=== PATIENT | male | born 1955 | race Caucasian/White ===

== ENCOUNTER 2018-09-20 10:42 | Emergency (ER) | payer BC, SELFPAY ==
[2018-09-20] MEDS ORDERED: LIDOCAINE 1% 20 ML MDV ONE ×2 (11:16→12:33)
[2018-09-20] MEDS ORDERED: LIDOCAINE 1% W/EPI 1:100,000 MDV 50 ML VIAL ONE (12:34)
--- NOTE | 2018-09-20 12:53 | EDPHYS ---
Physician Documentation [facility] Name: Felicia Galloway Age: 63 yrs Sex: Male : 1955 Arrival Date: 09/20/2018 Time: 10:46 Bed 24 Private MD: None, None ED Physician Virgil Harris HPI: 09/20 12:39 This 63 yrs old Male presents to ER via Ambulatory with complaints of Abscess.hussein 12:39 The patient presents with cellulitis of the right trapezius, the patient presents with hussein a swollen area of the right trapezius. Description: The affected area is moderate sized, localized. Onset: The symptoms/episode began/occurred 1 week(s) ago. Possible cause(s): unknown. Associated signs and symptoms: The patient has no apparent associated signs or symptoms. Modifying factors: the symptoms are alleviated by remaining still, the symptoms are aggravated by pressure, squeezing the lesion and expressing the contents. Severity of symptoms: At their worst the symptoms were mild. The patient has not experienced similar symptoms in the past. Historical: - Allergies: 10:52 No Known Allergies; sv - PMHx: 10:52 None; sv - PSHx: 10:52 None; sv - Immunization history:: Adult Immunizations up to date. - Social history:: Smoking status: Patient/guardian denies using tobacco. - Family history:: not pertinent. - Ebola Screening: : Patient negative for fever greater than or equal to 101.5 degrees Fahrenheit, and additional compatible Ebola Virus Disease symptoms Patient denies exposure to infectious person Patient denies travel to an Ebola-affected area in the 21 days before illness onset No symptoms or risks identified at this time. ROS: 12:39 Constitutional: Negative for fever, chills, and weight loss, Eyes: Negative for injury, hussein pain, redness, and discharge, ENT: Negative for injury, pain, and discharge, Neck: Negative for injury, pain, and swelling, Cardiovascular: Negative for chest pain, palpitations, and edema, Respiratory: Negative for shortness of breath, cough, wheezing, and pleuritic chest pain, Abdomen/GI: Negative for abdominal pain, nausea, vomiting, diarrhea, and constipation, Back: Negative for injury and pain, : Negative for injury, bleeding, discharge, and swelling, MS/Extremity: Negative for injury and deformity, Neuro: Negative for headache, weakness, numbness, tingling, and seizure, Psych: Negative for depression, anxiety, suicide ideation, homicidal ideation, and hallucinations, Allergy/Immunology: Negative for hives, rash, and allergies, Endocrine: Negative for neck swelling, polydipsia, polyuria, polyphagia, and marked weight changes, Hematologic/Lymphatic: Negative for swollen nodes, abnormal bleeding, and unusual bruising. 12:39 Skin: Positive for abscess, erythema, swelling, of the right trapezius. Exam: 12:39 Constitutional: This is a well developed, well nourished patient who is awake, alert, hussein and in no acute distress. Head/Face: Normocephalic, atraumatic. Eyes: Pupils equal round and reactive to light, extra-ocular motions intact. Lids and lashes normal. Conjunctiva and sclera are non-icteric and not injected. Cornea within normal limits. Periorbital areas with no swelling, redness, or edema. ENT: Nares patent. No nasal discharge, no septal abnormalities noted. Tympanic membranes are normal and external auditory canals are clear. Oropharynx with no redness, swelling, or masses, exudates, or evidence of obstruction, uvula midline. Mucous membranes moist. Neck: Trachea midline, no thyromegaly or masses palpated, and no cervical lymphadenopathy. Supple, full range of motion without nuchal rigidity, or vertebral point tenderness. No Meningismus. Chest/axilla: Normal chest wall appearance and motion. Nontender with no deformity. No lesions are appreciated. Cardiovascular: Regular rate and rhythm with a normal S1 and S2. No gallops, murmurs, or rubs. Normal PMI, no JVD. No pulse deficits. Respiratory: Lungs have equal breath sounds bilaterally, clear to auscultation and percussion. No rales, rhonchi or wheezes noted. No increased work of breathing, no retractions or nasal flaring. Abdomen/GI: Soft, non-tender, with normal bowel sounds. No distension or tympany. No guarding or rebound. No evidence of tenderness throughout. Back: No spinal tenderness. No costovertebral tenderness. Full range of motion. Male : Normal genitalia with no discharge or lesions. MS/ Extremity: Pulses equal, no cyanosis. Neurovascular intact. Full, normal range of motion. Neuro: Awake and alert, GCS 15, oriented to person, place, time, and situation. Cranial nerves II-XII grossly intact. Motor strength 5/5 in all extremities. Sensory grossly intact. Cerebellar exam normal. Normal gait. Psych: Awake, alert, with orientation to person, place and time. Behavior, mood, and affect are within normal limits. 12:39 Skin: abscess, that is moderate sized, of the right trapezius, cellulitis, that is moderate, induration, that is moderate is noted, Other draining wound. Vital Signs: 10:52 BP 142 / 85; Pulse 73; Resp 18; Temp 98.4; Pulse Ox 97% ; Weight 86.18 kg; Height 6 ft. sv 0 in. (182.88 cm); Pain 6/10; 13:35 BP 140 / 85; Pulse 76; Resp 17; Pulse Ox 99% on R/A; aj 10:52 Body Mass Index 25.77 (86.18 kg, 182.88 cm) sv Procedures: 12:43 I \T\ D: Incision and drainage was performed for an abscess of the right right trapezius hussein Prepped with Betadine, Anesthetized with 10 ml's 1% Lidocaine w/ Epi. Incised with #11 blade. Drained large amount purulent fluid. Packed with iodoform gauze, Dressing: sterile 4x4 gauze, the patient tolerated the procedure well. MDM: 10:56 Patient medically screened. [facility] 12:39 Data reviewed: vital signs, nurses notes. [facility] 09/20 12:38 Order name: Wound Culture [facility] 09/20 11:14 Order name: I\T\D Setup; Complete Time: 11:14 09/20 12:38 Order name: Wound dressing; Complete Time: 13:22 [facility] 09/20 12:38 Order name: Gloves, Sterile; Complete Time: 12:49 [facility] 09/20 12:38 Order name: Setup Suture Tray; Complete Time: 12:49 [facility] Administered Medications: 12:58 Drug: Doxycycline 100 mg Route: PO; aj 13:37 Follow up: Response: No adverse reaction aj 12:58 Drug: Bactrim (160 mg-800 mg (DS) 1 tablet Route: PO; aj 12:58 Follow up: Response: No adverse reaction aj 13:37 Follow up: Response: No adverse reaction aj 13:00 Drug: Lidocaine-Epinephrine -1%: (1:100,000) 10 ml Volume: 20 ml; Route: Infiltration; aj 13:37 Follow up: Response: No adverse reaction aj Disposition: 09/20/18 12:52 Discharged to Home. Impression: Cutaneous abscess of other sites - right trapezus. - Condition is Stable. - Discharge Instructions: Skin Abscess, Skin Abscess, [id number]. - Prescriptions for Tylenol- Codeine #3 300-30 mg Oral Tablet - take 2 tablet by ORAL route every 6 hours As needed; 30 tablet. Doxycycline Hyclate 100 mg Oral Tablet - take 1 tablet by ORAL route every 12 hours; 20 tablet. Bactrim DS 800- 160 mg Oral Tablet - take 1 tablet by ORAL route every 12 hours for 10 days; 20 tablet. - Medication Reconciliation Form, Thank You Letter, Antibiotic Education, Prescription Opioid Use form. - Follow up: Private Physician; When: 2 - 3 days; Reason: Recheck today's complaints, Continuance of care, Re-evaluation by your physician. Follow up: Kemar Ritchie; When: 2 - 3 days; Reason: Recheck today's complaints, Re-evaluation by your physician. - Problem is new. - Symptoms have improved. Signatures: Dispatcher [employer] Danica Mendes RN RN sv Myers, Amanda, RN RN aj Anderson, Corey, MD MD cha Corrections: (The following items were deleted from the chart) 13:37 12:52 09/20/2018 12:52 Discharged to Home. Impression: Cutaneous abscess of other sites aj - right trapezus. Condition is Stable. Discharge Instructions: Skin Abscess, Skin Abscess, [id number]. Prescriptions for Tylenol-Codeine #3 300-30 mg Oral Tablet - take 2 tablet by ORAL route every 6 hours As needed; 30 tablet, Doxycycline Hyclate 100 mg Oral Tablet - take 1 tablet by ORAL route every 12 hours; 20 tablet, Bactrim DS 800-160 mg Oral Tablet - take 1 tablet by ORAL route every 12 hours for 10 days; 20 tablet. and Forms are Medication Reconciliation Form, Thank You Letter, Antibiotic Education, Prescription Opioid Use. Follow up: Private Physician; When: 2 - 3 days; Reason: Recheck today's complaints, Continuance of care, Re-evaluation by your physician. Follow up: Kemar Ritchie; When: 2 - 3 days; Reason: Recheck today's complaints, Re-evaluation by your physician. Problem is new. Symptoms have improved. hussein
--- NOTE | 2018-09-20 12:53 | ER ---
Nurse's Notes [facility] Name: Felicia Galloway Age: 63 yrs Sex: Male : 1955 Arrival Date: 09/20/2018 Time: 10:46 Bed 24 Private MD: None, None Diagnosis: Cutaneous abscess of other sites-right trapezus Presentation: 09/20 10:51 Presenting complaint: Patient states: right shoulder abscess that has been there a sv couple of months but recently it got tight and opened up on its own and started having drainage. Transition of care: patient was not received from another setting of care. Onset of symptoms is unknown. Care prior to arrival: None. 10:51 Method Of Arrival: Ambulatory sv 10:51 Acuity: EMMIE 4 sv 13:36 Risk Assessment: Do you want to hurt yourself or someone else? Patient reports no aj desire to harm self or others. Initial Sepsis Screen: Does the patient meet any 2 criteria? No. Patient's initial sepsis screen is negative. Does the patient have a suspected source of infection? No. Patient's initial sepsis screen is negative. Triage Assessment: 10:53 General: Appears in no apparent distress. uncomfortable, Behavior is calm, cooperative, sv appropriate for age. Pain: Complains of pain in right trapezius Pain currently is 6 out of 10 on a pain scale. Neuro: Level of Consciousness is awake, alert, obeys commands, Oriented to person, place, time, situation, Gait is steady. Respiratory: Respiratory effort is even, unlabored, Respiratory pattern is regular, symmetrical. Historical: - Allergies: 10:52 No Known Allergies; sv - PMHx: 10:52 None; sv - PSHx: 10:52 None; sv - Immunization history:: Adult Immunizations up to date. - Social history:: Smoking status: Patient/guardian denies using tobacco. - Family history:: not pertinent. - Ebola Screening: : Patient negative for fever greater than or equal to 101.5 degrees Fahrenheit, and additional compatible Ebola Virus Disease symptoms Patient denies exposure to infectious person Patient denies travel to an Ebola-affected area in the 21 days before illness onset No symptoms or risks identified at this time. Screenin:12 Abuse screen: Denies threats or abuse. Denies injuries from another. Nutritional aj screening: No deficits noted. Tuberculosis screening: No symptoms or risk factors identified. Fall Risk None identified. Assessment: 11:12 General: Appears in no apparent distress. comfortable, Behavior is calm, cooperative, aj appropriate for age. Pain: Complains of pain in right trapezius. Neuro: Level of Consciousness is awake, alert, obeys commands, Oriented to person, place, time, situation, Appropriate for age. Respiratory: Airway is patent Respiratory effort is even, unlabored, Respiratory pattern is regular, symmetrical. Derm: Skin is intact, is healthy with good turgor, Skin is pink, warm \T\ dry. 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 12:59 Reassessment: Patient discharge pending provider procedure. Supplies set up at bedside aj and available for provider. 13:35 Reassessment: Patient appears in no apparent distress at this time. No changes from aj previously documented assessment. Patient and/or family updated on plan of care and expected duration. Pain level reassessed. Patient is alert, oriented x 3, equal unlabored respirations, skin warm/dry/pink. Patient states feeling better. Patient states symptoms have improved. Vital Signs: 10:52 BP 142 / 85; Pulse 73; Resp 18; Temp 98.4; Pulse Ox 97% ; Weight 86.18 kg; Height 6 ft. sv 0 in. (182.88 cm); Pain 6/10; 13:35 BP 140 / 85; Pulse 76; Resp 17; Pulse Ox 99% on R/A; aj 10:52 Body Mass Index 25.77 (86.18 kg, 182.88 cm) sv ED Course: 10:46 Patient arrived in ED. mr 10:46 None, None is Private Physician. mr 10:52 Triage completed. sv 10:53 Emily Frank, RN is Primary Nurse. aj 10:53 Arm band placed on. sv 10:56 Virgil Harris MD is Attending Physician. hussein 11:12 Patient has correct armband on for positive identification. aj 12:52 Kemar Ritchie MD is Referral Physician. hussein 13:16 Wound Culture Sent. aj 13:17 Assist provider with I \T\ D: of an abscess on right trapezius. Patient did not have IV aj access during this emergency room visit. Administered Medications: 12:58 Drug: Doxycycline 100 mg Route: PO; aj 13:37 Follow up: Response: No adverse reaction aj 12:58 Drug: Bactrim (160 mg-800 mg (DS) 1 tablet Route: PO; aj 12:58 Follow up: Response: No adverse reaction aj 13:37 Follow up: Response: No adverse reaction aj 13:00 Drug: Lidocaine-Epinephrine -1%: (1:100,000) 10 ml Volume: 20 ml; Route: Infiltration; aj 13:37 Follow up: Response: No adverse reaction aj Outcome: 12:52 Discharge ordered by . hussein 13:35 Discharged to home ambulatory. aj 13:35 Condition: good 13:35 Discharge instructions given to patient, Instructed on discharge instructions, follow up and referral plans. medication usage, Demonstrated understanding of instructions, follow-up care, medications, Prescriptions given X 3. 13:37 Patient left the ED. aj Signatures: Danica Zimmerman RN RN sv Myers, Amanda, RN RN aj Anderson, Corey, MD MD cha Rivera, Mary mr
[2018-09-20] MEDS ORDERED: SMZ./TMP. 800/160 MG TABLET ONE (13:07)
[2018-09-20] MEDS ORDERED: DOXYCYCLINE 100 MG CAP PO ONE (13:08)
== END 2018-09-20 13:37 | disposition home or self-care (01) ==
LOC: ER 10:42
PROC: 0H9BXZZ Drainage of Right Upper Arm Skin, External Approach (ICD-10-PCS; principal; 2018-09-20)
DX: L02.413 Cutaneous abscess of right upper limb (principal)
CPT/HCPCS: 87070; 87205; 99284

== ENCOUNTER 2021-01-12 20:06 | Emergency (ER) | payer SELFPAY ==
--- OUTSIDE RECORDS SUMMARY | 2021-01-12 20:09 | XMS REPORT | Continuity of Care Document ---
:1955 Author Organization [facility] t Address [address] [place] [address] Care Team Providers Name Role Phone Srinivasa MORAN, K.H. Attending Clinician Franky Bhakta MA Attending Clinician Unavailable Tani Bartholomew DO Attending Clinician Doctor Unassigned, Name Attending Clinician Unavailable Elisabet MORAN Attending Clinician Jaren MORAN Attending Clinician Problems Condition Condition Condition Status Onset Resolution Last Treating Co mments Source Name Details Category Date Date Treatment Clinician Date Sebaceous Sebaceous Diagnosis Active C [facility] cyst cyst kes [facility] ent Clinics Allergies, Adverse Reactions, Alerts This patient has no known allergies or adverse reactions. Medications Ordered Filled Start Stop Current Ordering Indication Dosage Frequency Signature Comments Components Source Medication Medication Date Date Medication? Clinician (SIG) Name Name Sulfamethox Sulfamethox Yes Kemar [address] [facility] [address] azole-Trime azole-Trime Kov[facility]v [facility] - thoprim thoprim [facility] Clinics Multi For Multi For Yes Kemar as [facility] Him Him Kovacev directed kes - [facility] ent Clinics Procedures This patient has no known procedures. Encounters Start End Encounter Admission Attending Care Care Encounter Source Date/Time Date/Time Type Type Clinicians Facility Department ID 2020-12-31 2020-12-31 Refill DEREK Bernabe [id number] 00:00:00 00:00:00 Angela Alvarado [id number] [place] [id number] Professio [phone] nal 059 [facility] 2020-11-29 2020-11-29 Case Jonah Bhakta [id number] 00:00:00 00:00:00 Management Stephen Nice [id number] [place] [id number] 2020-10-30 2020-10-30 Patient [facility] [id number] 00:00:00 00:00:00 Outreach [facility] [id number] [facility] [id number] PAVHARI [id number] [facility] 2020-10-23 2020-10-23 [facility] [id number] 00:00:00 00:00:00 Angela Alvarado [id number] [place] [id number] Professio [phone] [facility]9 [facility] 2020-10-22 2020-10-22 Orders Doctor JORGE [id number] 00:00:00 00:00:00 Only Unassigned, WILLEM [id number] [facility] [id number] 2020-10-02 2020-10-02 Orders Doctor JORGE [id number] 00:00:00 00:00:00 Only Unassigned, WILLEM [id number] [facility] [id number] 2020-09-20 2020-09-20 Telephone [facility] [id number] 00:00:00 00:00:00 Angela Alvarado [id number] [place] [id number] Professio [phone] psychiatric hospital9 [facility] 2020-09-17 2020-09-17 [facility] Dahiana Bhandari [id number] 08:00:00 23:59:00 Encounter Alejandro Barillas [id number] [facility] [id number] 2020-09-17 2020-09-17 [facility] Dahiana Bhandari [id number] 07:45:00 07:59:00 Encounter Alejandro Barillas [id number] [facility] [id number] 2020-09-17 2020-09-17 Telephone [facility] [id number] 00:00:00 00:00:00 [place] [id number] [place] [id number] [place] [id number] [place] [address] Office [facility] 2020-09-10 2020-09-10 Telephone Dahiana Bernabe [id number] 00:00:00 00:00:00 Angela Barillas [id number] [facility] [id number] 2020-08-28 2020-08-28 [facility] [id number] 00:00:00 00:00:00 Angela Alvarado [id number] [place] [id number] Professio [phone] psychiatric hospital9 [facility] 2020-05-11 2020-05-11 Office Srinivasa [facility] [id number] 09:58:09 20:55:08 Visit Angela Alvarado [id number] [place] [id number] Professio [id number] psychiatric hospital9 [facility] 2018-09-23 2018-09-23 [facility] [id number] [facility] 15:00:00 15:00:00 t Specialty/U Flavia kes - Specialty rology [facility] l Clinic Outpati ent Clinics Results This patient has no known results.
[2021-01-12] MEDS ORDERED: KETOROLAC 30 MG/ML INJ ONE (20:52)
[2021-01-12] MEDS ORDERED: NA CHLORIDE 0.9% 500 ML ONE (20:52)
[2021-01-12 21:03] LABS: Absolute Lymphocytes (CBC) 1.8 K/uL (0.7-4.9); Basophils % 0.6 % (0-1.3); Lymphocytes % 22.2 % (15.3-44.8); MPV 7.1 fL (7.6-11.3); RBC Red Blood Cell Count 4.14 M/uL (4.33-5.43)
[2021-01-12 21:12] LABS: Protime INR 1.05
--- NOTE | 2021-01-12 21:12 | RAD REPORT ---
EXAM DESCRIPTION: RAD - Chest Single View - 01/12/2021 9:02 pm CLINICAL HISTORY: CHEST PAIN Chest pain. COMPARISON: No comparisons FINDINGS: Portable technique limits examination quality. The lungs are grossly clear. The heart is normal in size. No displaced fractures. IMPRESSION: No acute intrathoracic process suspected.
[2021-01-12 21:23] LABS: Albumin 3.3 g/dL (3.4-5.0); Bilirubin Direct 0.1 mg/dL (0-0.2); Bilirubin Total 0.4 mg/dL (0.2-1.0); C-Reactive Protein 7.55 mg/L (<3.00); Magnesium 2.4 mg/dL (1.8-2.4); Potassium 4.1 mmol/L (3.5-5.1); Protein, Total 7.1 g/dL (6.4-8.2); Troponin (Emerg Dept Use Only) 0.02 ng/mL (0.0-0.045)
[2021-01-12] MEDS ORDERED: METHYLPREDNISOLONE 125 MG INJ ONE (22:10)
[2021-01-12 23:09] LABS: SARS-COV-2 RT PCR POSITIVE (NEGATIVE)
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
[2021-01-13] MEDS ORDERED: ASPIRIN 81 MG CHEWABLE TABLET ONE (00:45)
[2021-01-13 00:46] VITALS: TEMP 98.3
[2021-01-13 00:53] VITALS: BP 139/80; O2SAT 97
--- NOTE | 2021-01-13 20:33 | RAD REPORT ---
EXAM DESCRIPTION: CT - Abdomen Pelvis W Contrast - 01/13/2021 6:12 am CLINICAL HISTORY: Right side rib pain. COMPARISON: None. TECHNIQUE: CT of the abdomen and pelvis was performed following intravenous administration of iodina fitz contrast. Arterial phase images through the abdomen, and portal venous phase images through the a bdomen and pelvis were obtained. Oral contrast was not administered. Axial, coronal, and sagittal sof t tissue window reconstructions were created and sent to PACS. This exam was performed according to our departmental dose-optimization program, which includes autom ated exposure control, adjustment of the mA and/or kV according to patient size and/or use of iterati ve reconstruction technique. FINDINGS: Thoracic: No significant abnormality. Hepatobiliary: Tiny left hepatic lobe hypodensities, possibly cysts. No concerning hepatic lesion jaden ntified. The hepatic and portal veins are patent. The gallbladder is unremarkable. No biliary ductal dilatation. Pancreas: Unremarkable. Spleen: Unremarkable. Gastrointestinal: No evidence of bowel obstruction or perienteric inflammation. The appendix is nabil l. Small amount of fecal material in the colon. Adrenals: No abnormality identified in either adrenal gland. Renal: No concerning parenchymal abnormality in either kidney. No hydronephrosis or urolithiasis. Bladder/Reproductive: Unremarkable appearance of the urinary bladder by CT technique. Mild prostatome jackie with central dystrophic calcifications. Vascular/Lymphatics: No lymphadenopathy identified by CT size criteria. Mild mixed atherosclerosis. T he major visceral vessels are patent. Abdominal aorta is normal in caliber. Musculoskeletal: No acute osseous abnormality or concerning osseous lesion identified. Tiny bilateral fat-containing inguinal hernias with no associated inflammatory changes. L5-S1 and endplate degenera tive changes. Fluid / peritoneum: No significant free fluid. No free intraperitoneal air identified. IMPRESSION: 1. No acute abdominal or pelvic pathology identified. 2. Tiny bilateral fat-containing inguinal hernias with no associated inflammatory changes. 3. Mild prostatomegaly. Electronically signed by: Kiera Aguila MD 01/12/2021 11:30 PM CDT Due to temporary technical issues with the PACS/Fluency reporting system, reports are being signed by the in house radiologists without review as a courtesy to insure prompt reporting. The interpreting radiologist is fully responsible for the content of the report.
--- NOTE | 2021-01-13 20:36 | RAD REPORT ---
EXAM DESCRIPTION: CT - Chest For Pe Angio - 01/13/2021 6:12 am CLINICAL HISTORY: Right side rib pain. COMPARISON: None. TECHNIQUE: CTA of the chest was performed following intravenous administration of iodinated contrast . Axial soft tissue and bone window, and coronal and sagittal soft tissue window reconstructions were created and sent to PACS. 3D postprocessing was performed on an independent workstation, with images sent to PACS for subsequen t review. This exam was performed according to our departmental dose-optimization program, which includes autom ated exposure control, adjustment of the mA and/or kV according to patient size and/or use of iterati ve reconstruction technique. FINDINGS: Vascular: The pulmonary arteries are well-opacified to the segmental level. No CT evidence of acute pulmonary thromboembolism. No evidence of aortic aneurysm or dissection. Trace calcific ath erosclerosis. Lungs and pleura: Mild centrilobular emphysema. There are two small groundglass opacities in the kulwant phery of the right upper lobe, and one in the lingula. No pleural effusion. No pneumothorax. Mediastinum and neck: No mediastinal lymphadenopathy by CT size criteria. Unremarkable appearance of the thyroid gland. Cardiac: No cardiomegaly or pericardial effusion. Abdomen: No significant upper abdominal abnormality identified. Musculoskeletal: No concerning osseous abnormality. No acute osseous abnormality identified. IMPRESSION: 1. No CTA evidence of acute pulmonary thromboembolism. 2. No acute osseous abnormality identified. 3. Small groundglass opacities in the right upper lobe and lingula. Correlate for infectious/inflam matory process Electronically signed by: Kiera Aguila MD 01/12/2021 11:28 PM CDT Due to temporary technical issues with the PACS/Fluency reporting system, reports are being signed by the in house radiologists without review as a courtesy to insure prompt reporting. The interpreting radiologist is fully responsible for the content of the report.
== END 2021-01-13 00:39 | disposition home or self-care (01) ==
LOC: ER 20:06
DX: U07.1 COVID-19 (principal); J12.82 Pneumonia due to coronavirus disease 2019; I10 Essential (primary) hypertension; E78.00 Pure hypercholesterolemia, unspecified
CPT/HCPCS: 0240U; 36415; 71045; 71275; 74177; 80048; 80076; 83735; 83880; 84484; 85025; 85379; 85610; 86140; 93005; 96361; 96374; 96375; 99284; J2930; J7040; Q9967

== ENCOUNTER 2023-03-11 08:48 | Emergency (ER) | payer OTHER, SELFPAY ==
--- OUTSIDE RECORDS SUMMARY | 2023-03-11 08:56 | XMS REPORT | Continuity of Care Document ---
:[address] [facility] t Address [address] [facility] [place] [address] Care Team Providers Name Role Phone Pcp, Patient Does Not Have A Primary Care Physician [phone] Ramon MORAN, Kesha K.H. Attending Clinician KESHA NAVARROHRossana Attending Clinician Unavailable Stephen Bhakta MA Attending Clinician Unavailable Hernando Bartholomew DO Attending Clinician Doctor Unassigned, [place] Attending Clinician Unavailable Alejandro Bhandari MD Attending Clinician Kenton Eastman MD Attending Clinician ALEJANDRO BHANDARI Attending Clinician Unavailable ALEJANDRO BHANDARI Attending Clinician Unavailable Payers Payer Name Policy Type Policy Number Effective Date Expiration Date S ource Problems Condition Condition Condition Status Onset Resolution Last Treating Co mments Source Name Details Category Date Date Treatment Clinician Date Essential Essential Disease Active 2020-0 Uni vers hypertensi hypertensi 7-19 it y of on on 00:00: [place] [facility] Dyslipidem Dyslipidem Disease Active 2020-0 U nivers ia ia 7-19 ity of 00:00: [place] [facility] Exertional Exertional Disease Active 2020-0 U nivers chest pain chest pain 7-18 it y of 00:00: [place] [facility] Chest Chest Disease Active 2020-0 Univers pain, pain, 7-18 ity of cardiac cardiac 00:00: [place] [facility] Smoking Smoking Disease Active 2020-0 Univers greater greater 7-18 ity of than 10 than 10 00:00: [place] pack years pack years 00 Me dical Branch Sebaceous Sebaceous Diagnosis Active C ommon cyst cyst [facility] Allergies, Adverse Reactions, Alerts Allergy Allergy Status Severity Reaction(s) Onset Inactive Treating Comm ents Source Name Type Date Date Clinician NO KNOWN Drug Active Univers ALLERGIE Class ity of [facility] Social History Social Habit Start Date Stop Date Quantity Comments Source Tobacco use and 2020-03-10 2020-03-10 Never used [facility] exposure 00:00:00 00:00:00 Medical Branch Sex Ass[birth year] [facility] 00:00:00 00:00:00 Medical Branch Smoking Status Start Date Stop Date Source Former smoker 2020-03-10 00:00:00 2020-03-10 00:00:00 [facility] Branch Medications Ordered Filled Start Stop Current Ordering Indication Dosage Frequency Signature Comments Components Source Medication Medication Date Date Medication? Clinician (SIG) Name Name metoprolol Yes [id number] 25mg Take 1 U nivers succinate 9-10 tablet by ity o f XL 25 mg 24 00:00: mouth [place] hr tablet 00 daily. Medical Branch metoprolol Yes [id number] 25mg Take 1 U nivers succinate 9-10 tablet by ity o f XL 25 mg 24 00:00: mouth [place] hr tablet 00 daily. Medical Branch nitroglycer Yes .4mg Place 1 Uni vers in 0.4 mg 5-10 tablet ity of sublingual 00:00: [place] tablet 00 tongue Medical every 5 Branch (five) minutes as needed for Chest pain. atorvastati Yes 40mg Take 1 Univ ers n 40 mg 5-10 tablet by ity of tablet 00:00: mouth at [place] 00 bedtime. Medical Branch nitroglycer Yes .4mg Place 1 Uni vers in 0.4 mg 5-10 tablet ity of sublingual 00:00: [place] tablet 00 tongue Medical every 5 Branch (five) minutes as needed for Chest pain. atorvastati Yes 40mg Take 1 Univ ers n 40 mg 5-10 tablet by ity of tablet 00:00: mouth at [place] 00 bedtime. Medical Branch metoprolol 2020- No [id number] 25mg Take 1 Univers succinate 5-10 -10 tablet by ity of XL 25 mg 24 00:00[place] :00 daily. [facility] aspirin 81 Yes [id number] 81mg Take 1 U nivers mg chewable 7-21 tablet by ity of tablet 00:00: mouth 00 daily. Medical Branch aspirin 81 Yes [id number] 81mg Take 1 U nivers mg chewable 7-21 tablet by ity of tablet 00:00: mouth [place] 00 daily. Medical Branch Sulfamethox Sulfamethox Yes Kemar 1 tablet Common azole-Trime azole-Trime Kovacev Spirit thoprim thoprim - [facility] Multi For Multi For Yes Kemar as Commo n Him Him Kovacev directed Spirit [facility] Procedures This patient has no known procedures. Encounters Start End Encounter Admission Attending Care Care Encounter Source Date/Time Date/Time Type Type Clinicians Facility Department ID 2021-06-21 Emergency [facility] [id number] [facility]-12[facility]09 2021-12-09 [facility] [id number] Univers 00:00:00 00:00:00 Sendil Liz ALVARADO [id number] it[id number] PROF[place] [phone] S[address] 2021-05-02 2021-05-02 Refill Ramon [facility] [id number] Univers 00:00:00 00:00:00 Sendmonica Alvarado [id number] it[id number] [phone] S[address] alphonse[address] 2021-04-02 2021-04-02 Outpatient R RAMON [facility] [id number] Univers 10:30:00 10:30:00 [facility] 2020-12-31 2020-12-31 Refill Ramon [facility] [id number] 00:00:00 00:00:00 Kesha Alvarado [id number] [place] [id number] Professio [id number] [address] 2020-11-29 2020-11-29 Case Jonah Bhakta [id number] 00:00:00 00:00:00 Management Mainorarielledandre [place] [id number] [place] [id number] 2020-10-30 2020-10-30 [facility] [id number] 00:00:00 00:00:00 Outreach Hernando CHANDLER [id number] [facility] [id number] PAVHARION [id number] 2020-10-23 2020-10-23 [facility]phone [facility] [id number] 00:00:00 00:00:00 Kesha Alvarado [id number] [place] [id number] Professio [id number] [address] 2020-10-22 2020-10-22 Orders Doctor JORGE [id number] 00:00:00 00:00:00 Only Unassigned, WILLEM [id number] [place] [facility] [id number] 2020-10-02 2020-10-02 [facility] [id number] Univers 10:00:00 10:00:00 SENDIL jazmyne [facility] 2020-10-02 2020-10-02 Orders Doctor JORGE [id number] 00:00:00 00:00:00 Only UnassignedWILLEM [id number] [place] [facility] [id number] [id number] 2020-09-20 2020-09-20 [facility] [id number] 00:00:00 00:00:00 Kesha Alvarado [id number] [place] [id number] Professio [phone] [facility] 059 Building 2020-09-17 2020-09-17 [facility] Dahiana Bhandari [id number] 08:00:00 23:59:00 Encounter Alejandro Barillas [id number]2.686 [id number] 2020-09-17 2020-09-17 [facility] Dahiana Bhandari [id number] 07:45:00 07:59:00 Encounter Alejandro Barillas [id number]2.686 [id number] 247 2020-09-17 2020-09-17 Outpatient R [facility] [id number] Univers 07:00:00 07:00:00 [facility] 2020-09-17 2020-09-17 [facility] [id number] 00:00:00 00:00:00 [facility] [id number] [place] [id number] [place] [phone] [place] [address] Office Building 2020-09-14 2020-09-14 [facility] [id number] Univers 07:45:00 07:45:00 [facility] 2020-09-10 2020-09-10 Telephone Dahiana Navarro [id number] 00:00:00 00:00:00 Kesha Barillas [id number]2.686 [id number] 2020-08-28 2020-08-28 Telephone Ramon [facility] [id number] 00:00:00 00:00:00 Kesha Alvarado [id number] [place] [id number] [facility] [phone] [facility]9 [facility] 2020-07-02 2020-07-02 Outpatient R RAMON [facility] [id number] Univers 11:30:00 11:30:[facility] 2020-05-11 2020-05-11 Office Ramon [facility] [id number] 09:58:09 20:55:08 Visit Kesha Alvarado [id number] [place] [id number] [facility] [phone] [facility] 059 [facility] 2020-05-11 2020-05-11 Outpatient R RAMON [facility] [id number] Univers 10:00:00 10:00:[facility] 2018-09-23 2018-09-23 [id number] Common 15:00:00 15:00:00 t Specialty/U Sp miguel angel Special[facility] rology - [facility] Results This patient has no known results.
--- NOTE | 2023-03-11 09:15 | RAD REPORT ---
EXAM DESCRIPTION: CT - Head Brain Wo Cont - 03/11/2023 9:06 am CLINICAL HISTORY: SEIZURE Headache, drowsiness, seizure COMPARISON: No comparisons TECHNIQUE: All CT scans are performed using dose optimization technique as appropriate and may inclu de automated exposure control or mA/KV adjustment according to patient size. FINDINGS: No intracranial hemorrhage, hydrocephalus or extra-axial fluid collection.No areas of brai n edema or evidence of midline shift. The paranasal sinuses and mastoids are clear. Prominent polypoid soft tissue is seen in the nasal air way in nasopharynx. Direct visualization may be considered. The calvarium is intact. IMPRESSION: No acute intracranial abnormality.
--- NOTE | 2023-03-11 09:15 | RAD REPORT ---
EXAM DESCRIPTION: RAD - Chest Single View - 03/11/2023 9:10 am CLINICAL HISTORY: syncope Chest pain. COMPARISON: Chest Single View dated 01/12/2021 FINDINGS: Portable technique limits examination quality. The lungs are grossly clear. The heart is normal in size. No displaced fractures. IMPRESSION: No acute intrathoracic process suspected.
[2023-03-11 09:52] LABS: Absolute Lymphocytes (CBC) 0.8 K/uL (0.7-4.9); Hematocrit 40.9 % (39.6-49.0); Lymphocytes % 8.5 % (15.3-44.8); MCV 90.7 fL (80-100); MPV 7.5 fL (7.6-11.3); RBC Red Blood Cell Count 4.51 M/uL (4.33-5.43)
[2023-03-11 10:10] LABS: Albumin 3.3 g/dL (3.4-5.0); Bilirubin Direct 0.1 mg/dL (0-0.2); Bilirubin Indirect, Calculated 0.2 mg/dL (0.2-0.8); Bilirubin Total 0.3 mg/dL (0.2-1.0); Magnesium 2.7 mg/dL (1.6-2.4); Potassium 4.4 mEq/L (3.5-5.1); Protein, Total 6.4 g/dL (6.4-8.2); Troponin High Sensitivity 36.5 pg/mL (<58.9)
--- NOTE | 2023-03-11 11:03 | EDPHYS ---
Physician Documentation [facility] [place] Name: Felicia Galloway Age: 68 yrs Sex: Male : 1955 Arrival Date: 03/11/2023 Time: 08:48 Bed 19 Private MD: ED Physician Jonathan Jules HPI: 03/11 11:10 This 68 yrs old Male presents to ER via EMS with complaints of Probable Seizure. rt 11:10 Patient presents to the ED with reported seizure. Initially, patient stated that he had rt no prior seizure history, however, the family later stated that he had to seizures previously, last one about 1 month ago. Denies any head trauma. Patient was postictal, had return to baseline mental status. States that he feels well at this time. Denies other acute complaints or preceding symptoms. Symptoms are moderate severity, no other aggravating alleviating factors.. Historical: - Allergies: 09:08 No Known Allergies; db - PMHx: 09:08 High Cholesterol; Hypertension; db - Social history:: Smoking status: Patient/guardian denies using tobacco, but has a distant history of tobacco abuse. ROS: 11:10 Constitutional: Negative for fever, chills, and weight loss, Cardiovascular: Negative rt for chest pain, palpitations, and edema, Respiratory: Negative for shortness of breath, cough, wheezing, and pleuritic chest pain, Abdomen/GI: Negative for abdominal pain, nausea, vomiting, diarrhea, and constipation, MS/Extremity: Negative for injury and deformity, Skin: Negative for injury, rash, and discoloration, Psych: Negative for depression, anxiety, suicide ideation, homicidal ideation, and hallucinations. 11:10 Neuro: Positive for seizure activity, Negative for altered mental status. Exam: 11:10 Constitutional: This is a well developed, well nourished patient who is awake, alert, rt and in no acute distress. Head/Face: Normocephalic, atraumatic. Chest/axilla: Normal chest wall appearance and motion. Nontender with no deformity. No lesions are appreciated. Cardiovascular: Regular rate and rhythm with a normal S1 and S2. No gallops, murmurs, or rubs. Normal PMI, no JVD. No pulse deficits. Respiratory: Lungs have equal breath sounds bilaterally, clear to auscultation and percussion. No rales, rhonchi or wheezes noted. No increased work of breathing, no retractions or nasal flaring. Abdomen/GI: Soft, non-tender, with normal bowel sounds. No distension or tympany. No guarding or rebound. No evidence of tenderness throughout. Skin: Warm, dry with normal turgor. Normal color with no rashes, no lesions, and no evidence of cellulitis. MS/ Extremity: Pulses equal, no cyanosis. Neurovascular intact. Full, normal range of motion. Neuro: Awake and alert, GCS 15, oriented to person, place, time, and situation. Cranial nerves II-XII grossly intact. Motor strength 5/5 in all extremities. Sensory grossly intact. Cerebellar exam normal. Normal gait. Psych: Awake, alert, with orientation to person, place and time. Behavior, mood, and affect are within normal limits. 11:10 ECG was reviewed by the Attending Physician. Vital Signs: 08:53 BP 126 / 85; Pulse 68; Resp 18; Temp 97.6(O); Pulse Ox 94% on R/A; Weight 68.04 kg (R); em1 Height 6 ft. 0 in. (R); Pain 0/10; 11:55 BP 132 / 76; Pulse 52; Resp 16; Pulse Ox 98% on R/A; db 08:53 Body Mass Index 20.34 (68.04 kg, 182.88 cm) em1 08:53 Pain Scale: Adult em1 Anjali Coma Score: 09:09 Eye Response: spontaneous(4). Motor Response: obeys commands(6). Verbal Response: db oriented(5). Total: 15. MDM: 08:55 Patient medically screened. rt 12:35 Differential diagnosis: Seizure, syncope, dysrhythmia. Data reviewed: vital signs, rt nurses notes, lab test result(s), EKG, radiologic studies. Consideration of Admission/Observation Escalation of care including admission/observation considered. Low suspicion for dysrhythmia given prior seizure history, unremarkable EKG, unremarkable labs. CT scan of the head is unremarkable. As this is a second possibly third seizure, will start patient on antiepileptics, patient to follow-up with neurology as an outpatient.. I considered the following discharge prescriptions or medication management in the emergency department Medications were administered in the Emergency Department. See MAR. Independent interpretation of the following test(s) in the Emergency Department CT Scan: My interpretation is No hemorrhage seen on interpretation of CT scan images. Counseling: I had a detailed discussion with the patient and/or guardian regarding: the historical points, exam findings, and any diagnostic results supporting the discharge/admit diagnosis, lab results, radiology results, the need for outpatient follow up, to return to the emergency department if symptoms worsen or persist or if there are any questions or concerns that arise at home. ED course: I instructed the patient to avoid driving, swimming, other hazardous activities until he is cleared by neurologist. 03/11 08:55 Order name: Basic Metabolic Panel; Complete Time: 10:18 rt 03/11 08:55 Order name: CBC with Diff; Complete Time: 10:18 rt 03/11 08:55 Order name: LFT's; Complete Time: 10:18 rt 03/11 08:55 Order name: Magnesium; Complete Time: 10:18 rt 03/11 08:55 Order name: Troponin HS; Complete Time: 10:18 rt 03/11 08:55 Order name: BNP; Complete Time: 10:18 rt 03/11 08:55 Order name: XRAY Chest (1 view); Complete Time: 09:21 rt 03/11 08:55 Order name: CT Head Brain wo Cont; Complete Time: 09:21 rt 03/11 08:55 Order name: EKG; Complete Time: 08:56 rt 03/11 08:55 Order name: Cardiac monitoring; Complete Time: 10:15 rt 03/11 08:55 Order name: EKG - Nurse/Tech; Complete Time: 10:15 rt 03/11 08:55 Order name: IV Saline Lock; Complete Time: 10:15 rt 03/11 08:55 Order name: Labs collected and sent; Complete Time: 11:10 rt 03/11 08:55 Order name: O2 Per Protocol; Complete Time: 10:15 rt 03/11 08:55 Order name: O2 Sat Monitoring; Complete Time: 10:15 rt EC:10 Rate is 58 beats/min. Rhythm is regular, Normal Sinus Rhythm with No ectopy. QRS [place] rt is Normal. MN interval is normal. QRS interval is normal. QT interval is normal. No Q waves. Interpreted by me. Administered Medications: 11:23 Drug: Keppra IV 1500 mg Route: IV; Rate: calculated rate; Site: right antecubital; db 11:59 Follow up: Response: No adverse reaction; IV Status: Completed infusion db Disposition Summary: 03/11/23 11:03 Discharge Ordered Location: Home rt Problem: new rt Symptoms: are resolved rt Condition: Stable rt Diagnosis - Other seizures rt Followup: rt - With: Jose Kraft MD - When: 5 - 6 days - Reason: Discharge Instructions: - Discharge Summary Sheet rt - Seizure, Adult rt Forms: - Medication Reconciliation Form rt - Thank You Letter rt - Antibiotic Education rt - Prescription Opioid Use rt - Patient Portal Instructions rt Prescriptions: - Keppra 500 mg Oral Tablet - take 1 tablet by ORAL route every 12 hours; 60 tablet; Refills: 0, Product rt Selection Permitted Signatures: Dispatcher [employer] Loraine Pablo RN RN db Jonathan Jules MD MD rt Corrections: (The following items were deleted from the chart) 09:10 09:08 Home Meds: atorvastatin Oral; db db
--- NOTE | 2023-03-11 11:03 | ER ---
Nurse's Notes [facility] Name: Felicia Galloway Age: 68 yrs Sex: Male : 1955 Arrival Date: 03/11/2023 Time: 08:48 Bed 19 Private MD: Diagnosis: Other seizures Presentation: 03/11 08:55 Chief complaint: EMS states: PATIENT HAD WITNESS SEIZURE TODAY. NO HISTORY OF SEIZURES. db PATIENT WAS SITTING AT TABLE AND HAD WITNESSED TONIC CLONIC SEIZURE CAUGHT BY FRIEND. 4 MIN WITNESSED SEIZURE. POSTICTAL UPON EMS ARRIVAL, PATIENT WAS COMBATIVE AND CONFUSED. GIVEN 2MG IM ATIVAN. GLUCOSE 128. Coronavirus screen: Vaccine status: Patient reports receiving the 2nd dose of the covid vaccine. Client denies travel out of the [place] in the last 14 days. At this time, the client does not indicate any symptoms associated with coronavirus-19. Ebola Screen: Patient negative for fever greater than or equal to 101.5 degrees Fahrenheit, and additional compatible Ebola Virus Disease symptoms Patient denies exposure to infectious person. Patient denies travel to an Ebola-affected area in the 21 days before illness onset. No symptoms or risks identified at this time. Initial Sepsis Screen: Does the patient meet any 2 criteria? No. Patient's initial sepsis screen is negative. Does the patient have a suspected source of infection? No. Patient's initial sepsis screen is negative. Risk Assessment: Do you want to hurt yourself or someone else? Patient reports no desire to harm self or others. Onset of symptoms was March 11, 2023. 08:55 Method Of Arrival: EMS: [facility] db 08:55 Acuity: EMMIE 2 db Triage Assessment: 09:09 General: Appears in no apparent distress. comfortable, Behavior is calm, cooperative. db Pain: Denies pain. Neuro: Level of Consciousness is awake, alert, obeys commands, Oriented to person, place, time, situation. Historical: - Allergies: 09:08 No Known Allergies; db - PMHx: 09:08 High Cholesterol; Hypertension; db - Social history:: Smoking status: Patient/guardian denies using tobacco, but has a distant history of tobacco abuse. Screenin:30 [facility] ED Fall Risk Assessment (Adult) History of falling in the last 3 months, db including since admission No falls in past 3 months (0 pts) Confusion or Disorientation No (0 pts) Intoxicated or Sedated No (0 pts) Impaired Gait No (0 pts) Mobility Assist Device Used No (0 pt) Altered Elimination No (0 pt) Score/Fall Risk Level 0 - 2 = Low Risk Oriented to surroundings, Maintained a safe environment. Abuse screen: Denies threats or abuse. Denies injuries from another. Nutritional screening: No deficits noted. Tuberculosis screening: No symptoms or risk factors identified. Assessment: 10:30 Reassessment: Patient appears in no apparent distress at this time. Patient and/or db family updated on plan of care and expected duration. Pain level reassessed. Patient is alert, oriented x 3, equal unlabored respirations, skin warm/dry/pink. Neuro: Level of Consciousness is awake, alert, obeys commands, Oriented to person, place, time, situation. 12:00 Reassessment: Patient appears in no apparent distress at this time. Patient and/or db family updated on plan of care and expected duration. Pain level reassessed. Patient is alert, oriented x 3, equal unlabored respirations, skin warm/dry/pink. Reassessment: Patient states feeling better. Patient states symptoms have improved. General: Appears in no apparent distress. comfortable, Behavior is calm, cooperative. Pain:. Neuro: Level of Consciousness is awake, alert, obeys commands, Oriented to person, place, time, situation. Vital Signs: 08:53 BP 126 / 85; Pulse 68; Resp 18; Temp 97.6(O); Pulse Ox 94% on R/A; Weight 68.04 kg (R); em1 Height 6 ft. 0 in. (R); Pain 0/10; 11:55 BP 132 / 76; Pulse 52; Resp 16; Pulse Ox 98% on R/A; db 08:53 Body Mass Index 20.34 (68.04 kg, 182.88 cm) em1 08:53 Pain Scale: Adult em1 [place] Coma Score: 09:09 Eye Response: spontaneous(4). Motor Response: obeys commands(6). Verbal Response: db oriented(5). Total: 15. ED Course: 08:53 Patient arrived in ED. em1 08:55 Jonathan Jules MD is Attending Physician. rt 09:01 Loraine Ba RN is Primary Nurse. db 09:06 CT Head Brain wo Cont In Process Unspecified. EDMS 09:08 Triage completed. db 09:09 Arm band placed on Patient placed in an exam room. db 09:12 XRAY Chest (1 view) In Process Unspecified. EDMS 09:30 Seizure precautions initiated. db 11:03 Jose Kraft MD is Referral Physician. rt 12:01 Patient has correct armband on for positive identification. Bed in low position. Call db light in reach. Side rails up X 1. Patient has correct armband on for positive identification. Provided Education on: DISCHARGE. Client placed on continuous cardiac and pulse oximetry monitoring. NIBP monitoring applied. 12:01 No provider procedures requiring assistance completed. IV discontinued, intact, db bleeding controlled, No redness/swelling at site. Administered Medications: 11:23 Drug: Keppra IV 1500 mg Route: IV; Rate: calculated rate; Site: right antecubital; db 11:59 Follow up: Response: No adverse reaction; IV Status: Completed infusion db Medication: 09:30 VIS not applicable for this client. db Outcome: 11:03 Discharge ordered by MD. rt 12:01 Discharged to home via wheelchair. db 12:01 Condition: stable 12:01 Discharge instructions given to patient, family, Instructed on discharge instructions, follow up and referral plans. Prescriptions given X 1. 12:03 Patient left the ED. db Signatures: Dispatcher [employer] Juan Jose Arriaga em1 Loraine Ba RN RN Jonathan Wellington MD MD rt Corrections: (The following items were deleted from the chart) 09:10 09:08 Home Meds: atorvastatin Oral; db db
[2023-03-11] MEDS ORDERED: LEVETIRACETAM 500 MG/5 ML VIAL IV ONE (11:26)
[2023-03-11] MEDS ORDERED: NA CHLORIDE 0.9% 100 ML ONE (11:26)
[2023-03-11 12:09] VITALS: TEMP 97.6
[2023-03-11 12:10] VITALS: BP 132/76; O2SAT 98
--- NOTE | 2023-03-12 12:04 | EKG ---
Test Date: 2023-03-11 Test Time: 10:19:37 Corporate Quality Manager: ASHANTI MEASUREMENT RESULTS: Intervals: Rate: 58 NM: 164 QRSD: 80 QT: 438 QTc: 429 [facility]: P: -8 NM: 164 QRS: -16 T: -20 INTERPRETIVE STATEMENTS: Sinus bradycardia Possible Lateral infarct, age undetermined Abnormal ECG Compared to ECG 01/12/2021 20:07:30 Myocardial infarct finding now present Electronically Signed On 03-12-23 12:02:27 CDT by Deangelo Barrientos
== END 2023-03-11 12:03 | disposition home or self-care (01) ==
LOC: ER 08:48
DX: R56.9 Unspecified convulsions (principal)
CPT/HCPCS: 36415; 70450; 71045; 80048; 80076; 83735; 83880; 84484; 85025; 93005; 96365; 99284; J1953

== ENCOUNTER 2023-06-24 07:11 | Emergency (ER) | payer OTHER ==
--- OUTSIDE RECORDS SUMMARY | 2023-06-24 07:14 | XMS REPORT | Continuity of Care Document ---
:1955 Author Organization [facility] t Address [address] [facility] [address] [place] [id number] Care Team Providers Name Role Phone Pcp, Patient Does Not Have A Primary Care Physician [id number] Kesha Navarro MDHRossana Attending Clinician KESHA NAVARRO Attending Clinician Unavailable Stephen Bhakta MA Attending Clinician Unavailable Hernando Bartholomew DO Attending Clinician Doctor Unassigned, G. L. Garcia Attending Clinician Unavailable Alejandro Bhandari MD Attending [...] 7-19 it y of on on 00:00: [place] [facility] Dyslipidem Dyslipidem Disease Active 2020-0 U nivers ia ia 7-19 ity of 00:00: [place] [facility] Exertional Exertional Disease Active 2020-0 U nivers chest pain chest pain 7-18 it y of 00:00: [place] [facility] Chest Chest Disease Active 2020-0 Univers pain, pain, 7-18 ity of cardiac cardiac 00:00: [place] [facility] [place] Smoking Smoking Disease Active Univers greater greater 7-18 ity of than 10 than 10 00:00: [place] pack years pack years 00 Me dical Branch Sebaceous Sebaceous Diagnosis Active C ommon cyst cyst [facility] Allergies, Adverse Reactions, Alerts Allergy Allergy Status Severity Reaction(s) Onset Inactive Treating Comm ents Source Name Type Date Date Clinician NO KNOWN Drug Active Univers ALLERGIE Class ity of S [facility] Social History Social Habit Start Date Stop Date Quantity Comments Source Tobacco use and 2020-03-10 2020-03-10 Never used [facility] exposure 00:00:00 00:00:00 Medical Branch Sex Ass[birth year] [facility] 00:00:00 00:00:00 Medical Branch Smoking Status Start Date Stop Date Source Former smoker 2020-03-10 00:00:00 2020-03-10 00:00:00 [facility] Medications Ordered Filled Start Stop Current Ordering Indication Dosage Frequency Signature Comments Components Source Medication Medication Date Date Medication? Clinician (SIG) Name Name metoprolol Yes [id number] 25mg Take 1 U nivers succinate 9-10 tablet by ity o f XL 25 mg 24 00:00: mouth [place] hr tablet 00 daily. Medical Branch metoprolol Yes [id number] 25mg Take 1 U nivers succinate 9-10 [...] by ity of tablet 00:00: mouth at [place] 00 bedtime. Medical Branch nitroglycer Yes .4mg Place 1 Uni vers in 0.4 mg 5-10 tablet ity of sublingual 00:00[place] tablet 00 tongue Medical every 5 Branch (five) minutes as needed for Chest pain. atorvastati 0 Yes 40mg Take 1 Univ ers n 40 mg 5-10 tablet by ity of tablet 00:00: mouth at [place] 00 bedtime. Medical Branch metoprolol 0 2020- No [id number] 25mg Take 1 Univers succinate 5-10 09-10 tablet by ity of XL 25 mg 24 00:00[place] tablet [place] :00 daily. Medical [facility] aspirin 81 2019-0 Yes [id number] 81mg Take 1 U nivers mg chewable 7-21 tablet by ity of tablet 00:00: mouth [place] 00 daily. Medical Branch aspirin 81 2019-0 Yes [id number] 81mg Take 1 U nivers mg chewable 7-21 tablet by ity of tablet 00:00: mouth [place] 00 daily. Medical Branch Sulfamethox Sulfamethox Yes Kemar 1 tablet Common azole-Trime azole-Trime Kovacev Spirit thoprim thoprim - [facility] Multi For Multi For Yes Kemar as Commo n Him Him Kovacev directed [facility] Procedures This patient has no known procedures. Encounters Start End Encounter Admission Attending Care Care Encounter Source Date/Time Date/Time Type Type Clinicians Facility Department ID 2021-06-21 Emergency [facility] [id number] Univers 07:29:17 ity [facility] 2021-12-09 2021-12-09 [facility] [id number] Univers 00:00:00 00:00:00 Sendmonica ALVARADO [id number] ity of [id number] PROF[place] [phone] Md alphonse[address] 2021-05-02 2021-05-02 [facility] [id number] Univers 00:00:00 00:00:00 Kesha Alvarado [id number] it[id number] [phone] Md alphonsein nal [address] [place] [address] 2021-04-02 2021-04-02 Outpatient R RAMON [facility] [id number] Univers 10:30:00 10:30:00 SENDIL ity [facility] 2020-12-31 2020-12-31 [facility] [id number] 00:00:00 00:00:00 Sendmonica Alvarado [id number] [place] [id number] Professio [phone] nal 059 [facility] 2020-11-29 2020-11-29 Case Jonah Bhakta [id number] 00:00:00 00:00:00 Management Mainorarielledandre [place] [id number] [place] [id number] [id number] 2020-10-30 2020-10-30 Patient [facility] [id number] 00:00:00 00:00:00 Outreach Hernando [facility] [id number] [facility] [id number] PAVILLION [id number] [id number] 2020-10-23 2020-10-23 Telephone [facility] [id number] 00:00:00 00:00:00 Kesha Alvarado [id number] [place] [id number] Professio [phone] [facility] 059 [facility] 2020-10-22 2020-10-22 Orders Doctor JORGE [id number] 00:00:00 00:00:00 Only Unassigned, WILLEM [id number] [facility] [id number] [id number] 2020-10-02 2020-10-02 Outpatient R RAMON [facility] [id number] Univers 10:00:00 10:00:00 SENDIL jazmyne [facility] 2020-10-02 2020-10-02 Orders Doctor JORGE [id number] 00:00:00 00:00:00 Only Unassigned, WILLEM [id number] [facility] L. Garcia [facility] [phone] [id number] 2020-09-20 2020-09-20 Telephone [facility] [id number] 00:00:00 00:00:00 Kesha Alvarado [id number]7.2.686 [facility] [phone] [facility] 059 Building 2020-09-17 2020-09-17 [facility] Dahiana Bhandari [id number] 08:00:00 23:59:00 Encounter Alejandro Barillas [id number] 2020-09-17 2020-09-17 [facility] Dahiana Bhandari [id number] 07:45:00 07:59:00 Encounter Alejandro Barillas [id number]2.686 [id number] 2020-09-17 2020-09-17 Outpatient R [facility] [id number] Univers 07:00:00 07:00:00 [facility] [place] [facility] 2020-09-17 2020-09-17 Telephone [facility] [id number] 00:00:00 00:00:[address] [facility] [id number] [place] [id number] [place] [phone] [place] [id number] Office Building 2020-09-14 2020-09-14 Outpatient [facility] [id number] [facility] 07:45:00 07:45:00 [facility] 2020-09-10 2020-09-10 Telephone Dahiana Navarro [id number] 00:00:00 00:00:00 Kesha Barillas [id number]2.686 [id number] 2020-08-28 2020-08-28 Telephone [facility] [id number] 00:00:00 00:00:00 Kesha Alvarado [id number] [place] [id number] [facility] [phone] [facility] 2020-07-02 2020-07-02 Outpatient R RAMON [facility] [id number] Univers 11:30:00 11:30:00 [facility] 2020-05-11 2020-05-11 Office Ramon [facility] [id number] 09:58:09 20:55:08 Visit Kesha Alvarado [id number] [place] [id number] [facility] [phone] [facility]9 [facility] 2020-05-11 2020-05-11 Outpatient R RAMON [facility] [id number] Univers 10:00:00 10:00:00 [facility] 2018-09-23 2018-09-23 [id number] Common 15:00:00 15:00:00 t Specialty/U Sp miguel angel Specialty rology - [facility] Results This patient has no known results.
[2023-06-24] MEDS ORDERED: LEVETIRACETAM 500 MG/5 ML VIAL IV ONE (07:30)
[2023-06-24] MEDS ORDERED: NA CHLORIDE 0.9% 50 ML ONE (07:30)
[2023-06-24 07:33] LABS: Absolute Lymphocytes (CBC) 3.3 K/uL (0.7-4.9); MCV 92.2 fL (80-100); MPV 7.8 fL (7.6-11.3); Platelets 326 thou/uL (152-406); RBC Red Blood Cell Count 4.55 M/uL (4.33-5.43)
[2023-06-24 07:52] LABS: Potassium 3.7 mEq/L (3.5-5.1)
[2023-06-24 07:53] LABS: Albumin 3.4 g/dL (3.4-5.0); Bilirubin Total 0.5 mg/dL (0.2-1.0); Protein, Total 6.8 g/dL (6.4-8.2)
--- NOTE | 2023-06-24 07:56 | RAD REPORT ---
EXAM DESCRIPTION: CT - Head Brain Wo Cont - 06/24/2023 7:41 am CLINICAL HISTORY: SEIZURE Headache, drowsiness, seizure COMPARISON: Head Brain Wo Cont dated 03/11/2023 TECHNIQUE: All CT scans are performed using dose optimization technique as appropriate and may inclu de automated exposure control or mA/KV adjustment according to patient size. FINDINGS: No intracranial hemorrhage, hydrocephalus or extra-axial fluid collection.Mild brain atrop hy.No areas of brain edema or evidence of midline shift. The majority of the paranasal sinuses and bilateral mastoids are clear. The calvarium is intact. Numerous polypoid lesions are seen in the right nasal airway, nasopharynx and medial right maxillary antrum. . IMPRESSION: No acute intracranial abnormality. 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 Direct visualization suggested for followup.
--- NOTE | 2023-06-24 08:19 | EDPHYS ---
Physician Documentation [facility] Name: Felicia Galloway Age: 68 yrs Sex: Male : 1955 Arrival Date: 06/24/2023 Time: 07:11 Bed 4 Private MD: ED Physician Jonathan Jules HPI: 06/24 07:14 This 68 yrs old Male presents to ER via Unassigned with complaints of Seizure. rt 07:14 Patient presents to the ED with a second episode of seizure. This occurred just prior rt to arrival. Unclear how long it lasted for. Received 2 mg of Ativan terminating the seizure. Denies any physical complaints this time, states that he feels well. Denies other aggravating leaving factors. Symptoms are moderate in severity.. Historical: - Allergies: 07:35 No Known Allergies; mb9 - Home Meds: 07:35 Metoprolol Tartrate Oral [Active]; mb9 - PMHx: 07:35 High Cholesterol; Hypertension; Seizure; mb9 - PSHx: 07:35 None; mb9 - Immunization history:: Adult Immunizations up to date. - Social history:: Smoking status: Patient denies any tobacco usage or history of. ROS: 07:14 Constitutional: Negative for fever, chills, and weight loss, Cardiovascular: Negative rt for chest pain, palpitations, and edema, Respiratory: Negative for shortness of breath, cough, wheezing, and pleuritic chest pain, Abdomen/GI: Negative for abdominal pain, nausea, vomiting, diarrhea, and constipation, MS/Extremity: Negative for injury and deformity, Skin: Negative for injury, rash, and discoloration, Psych: Negative for depression, anxiety, suicide ideation, homicidal ideation, and hallucinations, 07:14 Neuro: Positive for seizure activity, Negative for altered mental status, Exam: 07:14 Constitutional: This is a well developed, well nourished patient who is awake, alert, rt and in no acute distress. Head/Face: Normocephalic, atraumatic. Chest/axilla: Normal chest wall appearance and motion. Nontender with no deformity. No lesions are appreciated. Cardiovascular: Regular rate and rhythm with a normal S1 and S2. No gallops, murmurs, or rubs. Normal PMI, no JVD. No pulse deficits. Respiratory: Lungs have equal breath sounds bilaterally, clear to auscultation and percussion. No rales, rhonchi or wheezes noted. No increased work of breathing, no retractions or nasal flaring. Abdomen/GI: Soft, non-tender, with normal bowel sounds. No distension or tympany. No guarding or rebound. No evidence of tenderness throughout. Skin: Warm, dry with normal turgor. Normal color with no rashes, no lesions, and no evidence of cellulitis. MS/ Extremity: Pulses equal, no cyanosis. Neurovascular intact. Full, normal range of motion. Neuro: Awake and alert, GCS 15, oriented to person, place, time, and situation. Cranial nerves II-XII grossly intact. Motor strength 5/5 in all extremities. Sensory grossly intact. Cerebellar exam normal. Normal gait. Psych: Awake, alert, with orientation to person, place and time. Behavior, mood, and affect are within normal limits. 07:59 ECG was reviewed by the Attending Physician. rt Vital Signs: 07:12 BP 156 / 88; Pulse 74; Resp 22; Temp 97.5; Pulse Ox 94% on R/A; ph 08:32 BP 122 / 72; Pulse 74; Resp 18; Pulse Ox 100% on R/A; mb9 Anjali Coma Score: 07:35 Eye Response: to voice(3). Motor Response: obeys commands(6). Verbal Response: mb9 oriented(5). Total: 14. MDM: 07:12 Patient medically screened. rt 08:19 Differential diagnosis: Seizure, hemorrhage, electrolyte disturbance. Data reviewed: rt vital signs, nurses notes. Consideration of Admission/Observation Escalation of care including admission/observation considered. Independent interpretation of the following test(s) in the Emergency Department CT Scan: My interpretation is No hemorrhage seen on interpretation of CT scan images. Care significantly affected by the following chronic conditions: Hypertension. Counseling: I had a detailed discussion with the patient and/or guardian regarding the historical points, exam findings, and any diagnostic results supporting the discharge/admit diagnosis, lab results, radiology results, the need for outpatient follow up. Response to treatment: the patient's symptoms have resolved after treatment. 06/24 07:13 Order name: CBC with Diff; Complete Time: 07:54 rt 06/24 07:13 Order name: CMP; Complete Time: 07:54 rt 06/24 07:13 Order name: CT Head Brain wo Cont; Complete Time: 07:58 rt 06/24 07:16 Order name: EKG; Complete Time: 07:16 rt 06/24 07:16 Order name: EKG - Nurse/Tech; Complete Time: 08:02 rt EC:59 Rate is 77 beats/min. Rhythm is regular, Normal Sinus Rhythm with No ectopy. QRS [place] rt is Normal. OR interval is normal. QRS interval is normal. QT interval is normal. No Q waves. T waves are Normal. No ST changes noted. Administered Medications: 07:26 Drug: Keppra IV 1000 mg IV at calculated rate once Route: IV; Rate: calculated rate; mb9 Site: left antecubital; 08:12 Follow up: Response: No adverse reaction mb9 08:32 Follow up: Response: No adverse reaction; IV Status: Completed infusion mb9 Disposition Summary: 06/24/23 08:19 Discharge Ordered Notes: Location: Home rt Problem: an ongoing problem rt Symptoms: have improved rt Condition: Stable rt Diagnosis - Other seizures rt Followup: rt - With: Jose Kraft MD - When: 5 - 6 days - Reason: Discharge Instructions: - Discharge Summary Sheet rt - Seizure, Adult rt Forms: - Medication Reconciliation Form rt - Thank You Letter rt - Antibiotic Education rt - Prescription Opioid Use rt - Patient Portal Instructions rt - Leadership Thank You Letter rt Prescriptions: - Keppra 500 mg Oral tablet - take 1 tablet ORAL route every 12 hours; 60 tablet; Refills: 0, Product rt Selection Permitted Signatures: Dispatcher [employer] Mirian Figueroa RN RN mb9 Jonathan Jules MD MD rt
--- NOTE | 2023-06-24 08:19 | ER ---
Nurse's Notes [facility] Name: Felicia Galloway Age: 68 yrs Sex: Male : 1955 Arrival Date: 06/24/2023 Time: 07:11 Bed 4 Private MD: Diagnosis: Other seizures Presentation: 06/24 07:12 Chief complaint: EMS states: states that she was woken up by pt's irregular ph breathing, pt then began convulsing w/ seizure-like activity lasting approx 1 min, was combative and post-ictal afterwards, EMS administered 2mg Ativan IM. Family reports that pt had 2 seizures a few months ago but has not been on seizure medications. VSS BGL 120, pt A\T\O x 4 upon arrival to ED. Coronavirus screen: Vaccine status: Patient reports receiving the 2nd dose of the covid vaccine. Ebola Screen: No symptoms or risks identified at this time. Initial Sepsis Screen: Does the patient meet any 2 criteria? No. Patient's initial sepsis screen is negative. Does the patient have a suspected source of infection? No. Patient's initial sepsis screen is negative. Risk Assessment: Do you want to hurt yourself or someone else? Patient reports no desire to harm self or others. Onset of symptoms was June 24, 2023. 07:12 Method Of Arrival: EMS: [facility] 07:12 Acuity: EMMIE 3 ph Historical: - Allergies: 07:35 No Known Allergies; mb9 - Home Meds: 07:35 Metoprolol Tartrate Oral [Active]; mb9 - PMHx: 07:35 High Cholesterol; Hypertension; Seizure; mb9 - PSHx: 07:35 None; mb9 - Immunization history:: Adult Immunizations up to date. - Social history:: Smoking status: Patient denies any tobacco usage or history of. Screenin:35 [facility] ED Fall Risk Assessment (Adult) History of falling in the last 3 months, mb9 including since admission No falls in past 3 months (0 pts) Confusion or Disorientation Yes (5 pts) Intoxicated or Sedated No (0 pts) Impaired Gait No (0 pts) Mobility Assist Device Used No (0 pt) Altered Elimination No (0 pt) Score/Fall Risk Level 0 - 2 = Low Risk Oriented to surroundings, Maintained a safe environment, Educated pt \T\ family on fall prevention, incl call for assistance when getting out of bed. Abuse screen: Denies threats or abuse. Nutritional screening: No deficits noted. Tuberculosis screening: No symptoms or risk factors identified. Assessment: 07:34 General: Appears in no apparent distress. Behavior is cooperative. Pain: Denies pain. mb9 Neuro: Gomez Agitation-Sedation Scale (RASS): 0 - Alert and Calm Level of Consciousness is awake, obeys commands, lethargic, Oriented to person, place, time, situation, Appropriate for age. Cardiovascular: Heart tones S1 S2 present Patient's skin is warm and dry. Respiratory: Airway is patent Respiratory effort is even, unlabored, Respiratory pattern is regular, symmetrical, Breath sounds are clear bilaterally. GI: Abdomen is flat, non-distended, Bowel sounds present X 4 quads. : No signs and/or symptoms were reported regarding the genitourinary system. EENT: No signs and/or symptoms were reported regarding the EENT system. Derm: Skin is pink, warm \T\ dry. Musculoskeletal: Range of motion: intact in all extremities. 08:32 Reassessment: No changes from previously documented assessment. Patient and/or family mb9 updated on plan of care and expected duration. Pain level reassessed. Patient is alert, oriented x 3, equal unlabored respirations, skin warm/dry/pink. Vital Signs: 07:12 BP 156 / 88; Pulse 74; Resp 22; Temp 97.5; Pulse Ox 94% on R/A; ph 08:32 BP 122 / 72; Pulse 74; Resp 18; Pulse Ox 100% on R/A; mb9 Anjali Coma Score: 07:35 Eye Response: to voice(3). Motor Response: obeys commands(6). Verbal Response: mb9 oriented(5). Total: 14. ED Course: 07:05 Seizure precautions initiated. mb9 07:12 Patient arrived in ED. ph 07:12 Jonathan Jules MD is Attending Physician. rt 07:14 Mirian Santizo RN is Primary Nurse. mb9 07:14 Arm band placed on. mb9 07:16 Triage completed. ph 07:36 Placed in gown. Bed in low position. Call light in reach. Side rails up X 1. Client mb9 placed on continuous cardiac and pulse oximetry monitoring. NIBP monitoring applied. environmental monitoring specialist on. 07:42 CT Head Brain wo Cont In Process Unspecified. EDMS 08:02 EKG done, by ED staff, reviewed by Jonathan Jules MD. Maintain EMS IV. Dressing mb9 intact. Good blood return noted. Site clean \T\ dry. Gauge \T\ site: 20 g to left AC. 08:18 Jose Kraft MD is Referral Physician. rt 08:32 No provider procedures requiring assistance completed. IV discontinued, intact, mb9 bleeding controlled, No redness/swelling at site. Pressure dressing applied. Administered Medications: 07:26 Drug: Keppra IV 1000 mg IV at calculated rate once Route: IV; Rate: calculated rate; mb9 Site: left antecubital; 08:12 Follow up: Response: No adverse reaction mb9 08:32 Follow up: Response: No adverse reaction; IV Status: Completed infusion mb9 Medication: 07:35 VIS not applicable for this client. mb9 Outcome: 08:19 Discharge ordered by MD. rt 08:32 Discharged to home via wheelchair, with family, hunter 08:32 Condition: stable 08:32 Discharge instructions given to patient, family, Instructed on discharge instructions, follow up and referral plans. Demonstrated understanding of instructions, follow-up care, medications, Prescriptions given X 1, 08:33 Patient left the ED. [email or web address] Signatures: Dispatcher [employer] Joyce Murillo, RN RN Mirian Stein RN RN Jonathan Erickson MD MD rt
[2023-06-24 08:38] VITALS: TEMP 97.5
[2023-06-24 08:39] VITALS: BP 122/72; O2SAT 100
--- NOTE | 2023-06-25 09:49 | EKG ---
Test Date: 2023-06-24 Test Time: 07:57:22 Sub Master: MB MEASUREMENT RESULTS: Intervals: Rate: 77 CT: 160 QRSD: 80 QT: 400 QTc: 452 [place]: P: 73 CT: 160 QRS: 75 T: 81 INTERPRETIVE STATEMENTS: Normal sinus rhythm Normal ECG Compared to ECG 03/11/2023 10:19:37 Sinus bradycardia no longer present Myocardial infarct finding no longer present Electronically Signed On 06-25-23 09:46:28 CDT by Deangelo Barrientos
== END 2023-06-24 08:33 | disposition home or self-care (01) ==
LOC: ER 07:11
DX: G40.89 Other seizures (principal); I10 Essential (primary) hypertension
CPT/HCPCS: 96365; 93005; 85025; 36415; 80053; 70450; 99285; J1953

== ENCOUNTER 2024-11-01 11:36 | Emergency (ER) | payer OTHER ==
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
[2024-11-01] MEDS ORDERED: NA CHLORIDE 0.9% 100 ML ONE (12:01)
[2024-11-01] MEDS ORDERED: LEVETIRACETAM 500 MG/5 ML VIAL IV ONE (12:01)
[2024-11-01 12:43] LABS: Absolute Eosinophils 0.2 K/uL (0-0.5); Absolute Lymphocytes (CBC) 1.3 K/uL (0.7-4.9); Absolute Monocytes 0.4 K/uL (0.1-1.3); Absolute Neutrophil 7.2 K/uL (1.8-8.0); Basophils % 0.5 % (0-1.3); Eosinophils % 1.9 % (0-4.4); Hematocrit 39.8 % (39.6-49.0); Hemoglobin 13.6 g/dL (13.6-17.9); Lymphocytes % 13.9 % (15.3-44.8); MCH 30.7 pg (27.0-35.0); MCHC 34.1 g/dL (32.0-36.0); MCV 90.1 fL (80-100); MPV 7.8 fL (7.6-11.3); Monocytes % 4.7 % (3.3-12.3); Platelets 302 thou/uL (152-406); RBC Red Blood Cell Count 4.42 M/uL (4.33-5.43); Red Cell Distribution Width 12.8 % (12.1-15.2)
[2024-11-01 12:46] LABS: PTT, Activated Partial Thromb 28.2 SECONDS (27.2-37.4); Protime INR 1.06
--- NOTE | 2024-11-01 12:47 | RAD REPORT ---
EXAM: CT Head Brain Wo Cont HISTORY: SEIZURE COMPARISON: 06/24/2023 TECHNIQUE: Multiple contiguous axial images were obtained for a CT of the brain without contrast. Sag ittal and coronal reformats were performed. One or more of the following dose reduction techniques were used: Automated exposure control, adjus tment of the mA and kV according to patient size, and iterative reconstruction. Unless otherwise specified, incidental findings do not require dedicated imaging follow-up. FINDINGS: No evidence of hydrocephalus, intracranial hemorrhage, or extra-axial fluid collection. The brain is normal in morphology. The calvarium is intact. Polypoidal mucosal thickening within the nasal cavity and paranasal sinuses most notably the right maxillary sinus. Right maxillary sinus air-fluid level with aerated secretions Mastoid air cells are essentially clear. IMPRESSION: No evidence of acute intracranial abnormality. Polypoidal paranasal sinus and nasal cavity mucosal thickening as above. New right maxillary sinus ai r-fluid level with aerated secretions. Please correlate clinically for evidence of acute sinusitis.
[2024-11-01 12:49] LABS: Albumin 3.2 g/dL (3.4-5.0); Anion Gap 13.1 mEq/L (5.0-15.0); Bilirubin Direct 0.2 mg/dL (0-0.2); Bilirubin Indirect, Calculated 0.5 mg/dL (0.2-0.8); Bilirubin Total 0.7 mg/dL (0.2-1.0); Globulin 3.3 g/dL (2.3-3.5); Magnesium 2.6 mg/dL (1.6-2.4); Potassium 4.1 mEq/L (3.5-5.1); Protein, Total 6.5 g/dL (6.4-8.2)
--- NOTE | 2024-11-01 15:07 | ER ---
Nurse's Notes [facility] Name: Feilcia Galloway Age: 69 yrs Sex: Male : 1955 Arrival Date: 11/01/2024 Time: 11:36 Bed 16 Private MD: Diagnosis: Epileptic seizures related to external causes, not intractable, without status epilepticus Presentation: 11/01 11:46 Chief complaint: EMS states: they were toned out by daughter for seizure lasting 1-2min kc6 while sitting in his living room chair. (-) LOC, no blood thinners. Coronavirus screen: At this time, the client does not indicate any symptoms associated with coronavirus-19. Ebola Screen: No symptoms or risks identified at this time. Initial Sepsis Screen: Does the patient meet any 2 criteria? No. Patient's initial sepsis screen is negative. Does the patient have a suspected source of infection? No. Patient's initial sepsis screen is negative. Risk Assessment: Do you want to hurt yourself or someone else? Patient reports no desire to harm self or others. Onset of symptoms was November 01, 2024. Care prior to arrival: IV initiated. 18 GA, in the right antecubital area, Glucose check: 150. 11:46 Method Of Arrival: EMS: [facility] kc6 11:46 Acuity: EMMIE 2 kc6 Historical: - Allergies: 11:48 No Known Allergies; kc6 - PMHx: 11:48 Seizure; Hypertension; High Cholesterol; Depressive disorder; kc6 - PSHx: 11:48 None; kc6 - Immunization history:: Adult Immunizations up to date. - Infectious Disease History:: Denies. - Social history:: Smoking status: Reported history of juuling and/or vaping. - Family history:: not pertinent. - Hospitalizations: : No recent hospitalization is reported. Screenin:49 [facility] ED Fall Risk Assessment (Adult) History of falling in the last 3 months, kc6 including since admission Yes- physiologic fall (2 pts) Confusion or Disorientation Yes (5 pts) Intoxicated or Sedated No (0 pts) Impaired Gait No (0 pts) Mobility Assist Device Used No (0 pt) Altered Elimination No (0 pt) Score/Fall Risk Level 3 or more points = High Risk Oriented to surroundings, Maintained a safe environment, Educated pt \T\ family on fall prevention, incl call for assistance when getting out of bed. Abuse screen: Denies threats or abuse. Denies injuries from another. Nutritional screening: No deficits noted. Tuberculosis screening: No symptoms or risk factors identified. Assessment: 11:46 General: Appears in no apparent distress. comfortable, well groomed, well developed, kc6 Behavior is cooperative, appropriate for age, drowsy. Pain: Denies pain. Neuro: Level of Consciousness is awake, obeys commands, post ictal, Oriented to person, place, time, situation, Appropriate for age Seizure activity reported prior to arrival. Type of seizure: tonic-clonic seizure. Seizure lasted approximately 2 minutes. Patient is post-ictal at this time. Cardiovascular: Capillary refill < 3 seconds. Respiratory: Airway is patent Trachea midline Respiratory effort is even, unlabored, Respiratory pattern is regular, symmetrical. GI: No signs and/or symptoms were reported involving the gastrointestinal system. : No signs and/or symptoms were reported regarding the genitourinary system. EENT: No signs and/or symptoms were reported regarding the EENT system. Derm: No signs and/or symptoms reported regarding the dermatologic system. Skin is intact, is healthy with good turgor, Skin is pink, warm \T\ dry. Musculoskeletal: No signs and/or symptoms reported regarding the musculoskeletal system. Circulation, motion, and sensation intact. Range of motion: intact in all extremities. 12:56 Reassessment: Patient appears in no apparent distress at this time. No changes from kc6 previously documented assessment. Patient and/or family updated on plan of care and expected duration. Pain level reassessed. Patient is alert, oriented x 3, equal unlabored respirations, skin warm/dry/pink. 13:56 Reassessment: Patient appears in no apparent distress at this time. No changes from kc6 previously documented assessment. Patient and/or family updated on plan of care and expected duration. Pain level reassessed. Patient is alert, oriented x 3, equal unlabored respirations, skin warm/dry/pink. 14:31 Reassessment: Patient appears in no apparent distress at this time. No changes from kc6 previously documented assessment. Patient and/or family updated on plan of care and expected duration. Pain level reassessed. Patient is alert, oriented x 3, equal unlabored respirations, skin warm/dry/pink. 15:15 Reassessment: Patient appears in no apparent distress at this time. No changes from kc6 previously documented assessment. Patient and/or family updated on plan of care and expected duration. Pain level reassessed. Patient is alert, oriented x 3, equal unlabored respirations, skin warm/dry/pink. Patient states feeling better. Patient states symptoms have improved. Vital Signs: 11:46 BP 135 / 77; Pulse 60; Resp 16 S; Temp 97.7(O); Pulse Ox 96% on R/A; Pain 0/10; kc6 12:53 BP 118 / 72; Pulse 68; Resp 16 S; Pulse Ox 93% on R/A; kc6 14:32 BP 126 / 81; Pulse 59; Resp 16 S; Pulse Ox 99% on R/A; kc6 15:16 BP 142 / 85; Pulse 62; Resp 16 S; Pulse Ox 97% on R/A; kc6 11:46 Pain Scale: Adult kc6 Anjali Coma Score: 11:48 Eye Response: to voice(3). Motor Response: obeys commands(6). Verbal Response: kc6 oriented(5). Total: 14. ED Course: 11:46 Patient arrived in ED. kc6 11:47 Alfie Hunt MD is Attending Physician. jj9 11:48 Triage completed. kc6 11:48 Arm band placed on. kc6 11:48 Maintain EMS IV. Dressing intact. Good blood return noted. Site clean \T\ dry. Gauge \T\ nina 6 site: 18G RAC. Flushed with 10 mL NS. Patient maintains SpO2 saturation greater than 95% on room air. 11:49 Patient has correct armband on for positive identification. Placed in gown. Bed in low kc6 position. Call light in reach. Side rails up X2. Adult w/ patient. Seizure precautions initiated. machine bander and cellophaner helper on. Pulse ox on. NIBP on. Door closed. Noise minimized. Lights dimmed. Warm blanket given. Pillow given. Verbal reassurance given. 11:53 Attending Physician role handed off by Alfie Hunt MD rn 11:53 Roland Bustamante MD is Attending Physician. rn 11:54 Karen Bonilla RN is Primary Nurse. kc6 12:07 CT Head Brain wo Cont In Process Unspecified. EDMS 15:16 No provider procedures requiring assistance completed. kc6 15:54 IV discontinued, intact, bleeding controlled, No redness/swelling at site. Pressure kc6 dressing applied. Administered Medications: 12:24 Drug: Keppra IV 1000 mg IV at calculated rate once Route: IV; Rate: calculated rate; kc6 Site: right antecubital; 12:54 Follow up: Response: No adverse reaction; IV Status: Completed infusion; IV Intake: kc6 100ml Medication: 15:16 VIS not applicable for this client. kc6 Intake: 12:54 IV: 100ml; Total: 100ml. kc6 Outcome: 15:07 Discharge ordered by . rn 15:54 Discharged to home ambulatory, with family, kc6 15:54 Condition: improved 15:54 Discharge instructions given to patient, family, Instructed on discharge instructions, follow up and referral plans. Demonstrated understanding of instructions, follow-up care, 15:54 Patient left the ED. kc6 Signatures: Dispatcher [employer] EDRoland Fish MD MD rn Campbell, Kaitlyn, RN RN kc6 Alfie Hunt MD MD [email or web address]
--- NOTE | 2024-11-01 15:08 | EDPHYS ---
Physician Documentation [facility] Name: Felicia Galloway Age: 69 yrs Sex: Male : 1955 Arrival Date: 11/01/2024 Time: 11:36 Bed 16 Private MD: ED Physician Roland Bustamante HPI: 11/01 15:04 This 69 yrs old Male presents to ER via EMS with complaints of Seizure. rn 15:04 The patient presents with a history of multiple seizures, a total of 2. rn 15:05 Seizure onset: today. Associated injury: The patient did not suffer any apparent rn associated injury. The patient has experienced similar episodes in the past. Patient had 2 seizures today, has history of seizures, takes Keppra daily. Daughter reports overdid himself yesterday outside may have gotten dehydrated. No fever or chills. No injury or trauma. No fall or injury from seizure. Patient awake alert and back to baseline.. Historical: - Allergies: 11:48 No Known Allergies; kc6 - PMHx: 11:48 Seizure; Hypertension; High Cholesterol; Depressive disorder; kc6 - PSHx: 11:48 None; kc6 - Immunization history:: Adult Immunizations up to date. - Infectious Disease History:: Denies. - Social history:: Smoking status: Reported history of juuling and/or vaping. - Family history:: not pertinent. - Hospitalizations: : No recent hospitalization is reported. ROS: 15:05 Constitutional: Negative for fever, chills, and weight loss, Neck: Negative for injury, rn pain, and swelling, Cardiovascular: Negative for chest pain, palpitations, and edema, Respiratory: Negative for shortness of breath, cough, wheezing, and pleuritic chest pain, Abdomen/GI: Negative for abdominal pain, nausea, vomiting, diarrhea, and constipation, Back: Negative for injury and pain, MS/Extremity: Negative for injury and deformity, Skin: Negative for injury, rash, and discoloration, Neuro: Positive for seizures Exam: 15:05 Constitutional: This is a well developed, well nourished patient who is awake, alert, rn and in no acute distress. Head/Face: Normocephalic, atraumatic. Neck: No midline cervical tenderness Cardiovascular: Regular rate and rhythm. No pulse deficits. Respiratory: No increased work of breathing, no retractions or nasal flaring. Abdomen/GI: Soft, non-tender MS/ Extremity: Pulses equal, no cyanosis. Neurovascular intact. Full, normal range of motion. Equal circumference. Neuro: Awake and alert, GCS 15, oriented to person, place, time, and situation. Cranial nerves II-XII grossly intact. Motor strength 5/5 in all extremities. Sensory grossly intact. 17:42 ECG was reviewed by the Attending Physician. rn Vital Signs: 11:46 BP 135 / 77; Pulse 60; Resp 16 S; Temp 97.7(O); Pulse Ox 96% on R/A; Pain 0/10; kc6 12:53 BP 118 / 72; Pulse 68; Resp 16 S; Pulse Ox 93% on R/A; kc6 14:32 BP 126 / 81; Pulse 59; Resp 16 S; Pulse Ox 99% on R/A; kc6 15:16 BP 142 / 85; Pulse 62; Resp 16 S; Pulse Ox 97% on R/A; kc6 11:46 Pain Scale: Adult kc6 Anjali Coma Score: 11:48 Eye Response: to voice(3). Motor Response: obeys commands(6). Verbal Response: kc6 oriented(5). Total: 14. MDM: 11:48 Medical Screening Exam initiated jj9 15:05 Differential diagnosis: seizure. Data reviewed: vital signs, nurses notes, lab test rn result(s), EKG, radiologic studies, CT scan. Care significantly affected by the following chronic conditions: Epilepsy. Counseling: I had a detailed discussion with the patient and/or guardian regarding the historical points, exam findings, and any diagnostic results supporting the discharge/admit diagnosis, lab results, radiology results, the need for outpatient follow up, to return to the emergency department if symptoms worsen or persist or if there are any questions or concerns that arise at home. Response to treatment: the patient's symptoms have resolved after treatment, the patient's condition has returned to base line, the patient is now symptom free, and as a result, I will discharge patient. Special discussion: I discussed with the patient/guardian in detail that at this point there is no indication for admission to the hospital. It is understood, however, that if the symptoms persist or worsen the patient needs to return immediately for re-evaluation. Based on the history and exam findings, there is no indication for further emergent testing or inpatient evaluation. I discussed with the patient/guardian the need to see the neurologist for further evaluation of the symptoms. ED course: I have personally reviewed all of the results, including but not limited to blood tests and imaging deemed necessary to safely discharge this patient at this time. All results given to and printed out for patient. I personally went over all the results with the patient and answered all questions. Patient will follow-up with PCP and or specialist as discussed. Return precautions given and understood.. 11/01 11:53 Order name: Basic Metabolic Panel; Complete Time: :11/01 11:53 Order name: CBC with Diff; Complete Time: 11/01 11:53 Order name: Hepatic Function; Complete Time: 11/01 11:53 Order name: Magnesium; Complete Time: 11/01 11:53 Order name: Protime (+inr); Complete Time: 11/01 11:53 Order name: Ptt, Activated; Complete Time: 11/01 11:53 Order name: CT Head Brain wo Cont; Complete Time: :11/01 11:53 Order name: EKG; Complete Time: 11/01 11:53 Order name: Cardiac monitoring; Complete Time: 11/01 11:53 Order name: EKG - Nurse/Tech; Complete Time: 12:24 11/01 11:53 Order name: IV Saline Lock; Complete Time: 11/01 11:53 Order name: Labs collected and sent; Complete Time: 12:11/01 11:53 Order name: NPO; Complete Time: 11/01 11:53 Order name: O2 Per Protocol; Complete Time: 11/01 11:53 Order name: O2 Sat Monitoring; Complete Time: rn EC:42 Rate is 69 beats/min. Rhythm is regular. QRS Commiskey is Normal. LA interval is normal. QRS rn interval is normal. QT interval is normal. No Q waves. T waves are Normal. No ST changes noted. Clinical impression: Normal ECG. Interpreted by me. Reviewed by me. Administered Medications: 12:24 Drug: Keppra IV 1000 mg IV at calculated rate once Route: IV; Rate: calculated rate; kc6 Site: right antecubital; 12:54 Follow up: Response: No adverse reaction; IV Status: Completed infusion; IV Intake: kc6 100ml Disposition Summary: 11/01/24 15:07 Discharge Ordered Notes: Location: Home rn Problem: chronic rn Symptoms: have improved rn Condition: Stable rn Diagnosis - Epileptic seizures related to external causes, not intractable, without status rn epilepticus Followup: rn - With: Private Physician - When: As needed - Reason: Recheck today's complaints, Re-evaluation by your physician Discharge Instructions: - Discharge Summary Sheet rn - Epilepsy rn - Seizure, Adult rn Forms: - Medication Reconciliation Form rn - Antibiotic rn appeals - Prescription Opioid Use rn - Patient Portal Instructions rn - Leadership Thank You Letter rn Prescriptions: - Augmentin 875-125 mg Oral Tablet - take 1 tablet ORAL route every 12 hours for 10 days; 20 tablet; Refills: 0, rn Product Selection Permitted Signatures: Dispatcher [employer] EDMS Roland Bustamante MD MD rn Campbell, Kaitlyn, RN RN kc6 Alfie Hunt MD MD [email or web address] Corrections: (The following items were deleted from the chart) 11:54 11:54 BASIC METABOLIC PANEL+C.LAB.BRZ ordered. EDMS EDMS 11:54 11:54 CBC+H.LAB.BRZ ordered. EDMS EDMS 11:54 11:54 HEPATIC FUNCTION+C.LAB.BRZ ordered. EDMS EDMS 11:54 11:54 MAGNESIUM+C.LAB.BRZ ordered. EDMS EDMS 11:54 11:54 PROTIME (+INR)+COAG.LAB.BRZ ordered. EDMS EDMS 11:54 11:54 PTT, ACTIVATED+COAG.LAB.BRZ ordered. EDMS EDMS
[2024-11-01 16:33] VITALS: TEMP 97.7
[2024-11-01 16:37] VITALS: BP 142/85; O2SAT 97
--- NOTE | 2024-11-04 14:53 | EKG ---
Test Date: 2024-11-01 Test Time: 12:15:31 [employer]: CR MEASUREMENT RESULTS: Intervals: Rate: 69 MA: 156 QRSD: 80 QT: 422 QTc: 452 [place]: P: 74 MA: 156 QRS: 80 T: 85 INTERPRETIVE STATEMENTS: Normal sinus rhythm Normal ECG Compared to ECG 06/24/2023 07:57:22 No significant changes Electronically Signed On 11-04-24 14:44:05 CDT by Robbie Cortez
== END 2024-11-01 15:54 | disposition home or self-care (01) ==
LOC: ER 11:36
DX: G40.509 Epileptic seizures related to external causes, not intractable, without status epilepticus (principal)
CPT/HCPCS: 96365; 93005; 85025; 80048; 36415; 83735; 85610; 80076; 85730; 70450; 99285; J1953